=== PATIENT | male | born 1965 | race Caucasian/White ===

== ENCOUNTER 2023-07-05 18:46 | Emergency (ER) | payer SELFPAY ==
[~2023-07-05] VITALS: Ht 170.2 cm; Wt 70.0 kg
[2023-07-05 18:49] VITALS: BP 149/100; PULSE 116; RESP 16; TEMP 98.6; O2SAT 100
[2023-07-05] MEDS ORDERED: LIDOCAINE 5% PATCH TOP STA (22:02)
[2023-07-05] MEDS ORDERED: KETOROLAC 60MG/2ML VIAL IM ONE (22:15)
[2023-07-05] MEDS ORDERED: METHOCARBAMOL 750MG TABLET PO SCH (22:15)
== END 2023-07-05 22:36 | disposition home or self-care (01) ==
LOC: ER 18:46
DX: S13.4XXA Sprain of ligaments of cervical spine, initial encounter (principal); M25.561 Pain in right knee; V98.8XXA Other specified transport accidents, initial encounter; Y93.89 Activity, other specified; Y92.89 Other specified places as the place of occurrence of the external cause; Y99.8 Other external cause status
CPT/HCPCS: 73562; 70450; 72125; 99284; Z7610 ×3